=== PATIENT | female | born 1975 | race Two or more races ===

== ENCOUNTER → 2017-01-23 | Outpatient (CLI) | payer OTHER ==
--- NOTE | 2017-01-23 21:31 | RADRPT ---
PROCEDURE: XR Pelvis and Hips. CLINICAL INDICATION: Pelvic pain. Bilateral hip pain. TECHNIQUE: Five views. Frontal pelvis. Frontal and lateral right hip. Frontal and lateral left hip. COMPARISON: No prior studies are available for comparison. FINDINGS: There is no fracture or dislocation. The soft tissues are normal. There are degenerative changes with osteophytes arising from the hips. There is mild joint space suzi rowing of both hip joints. There is no lytic or blastic lesion. There is no radiopaque foreign body. IMPRESSION: 1. Moderate degenerative changes of both hips. 2. No acute abnormality. RPTAT: QQ .Britton Garrido MD, MD Date Time Electronically viewed and signed by .Britton Garrido MD, MD on 01/23/2017 21:31 .R/
--- NOTE | 2017-01-24 06:03 | HKNOTE ---
DATE OF SERVICE: 01/23/2017 CHIEF COMPLAINT: Right hip pain. HISTORY OF PRESENT ILLNESS: This is a 41-year-old morbidly obese female who is complaining of pain in the right hip. She states that she had a fall approximately 6 months ago. The pain is intermitt ent. It radiates to the right knee. She does not use any assist devices. She denies any back pain . She does not take any pain medication. The pain has improved over the last 6 months. She has no other complaints. GAIT: Nonantalgic gait, reciprocal gait pattern. RIGHT KNEE EXAMINATION: 0 to 100 degrees of flexion, 40 degrees of external rotation, 20 degrees of internal rotation, 30 degrees of abduction. Negative Morales's, negative straight leg raise. MOTOR STRENGTH: 5/5 hamstrings, quadriceps, tibialis anterior, gastrocsoleus. X-RAYS RIGHT HIP: Multiple views of the right hip demonstrate minimal degenerative changes with ost eophyte formation. There is minimal joint space narrowing. No fractures or dislocations are seen. IMPRESSION: A 41-year-old obese female with right hip osteoarthritis. PLAN: I discussed treatment options with the patient. I discussed weight loss, use of a cane and p ain medications. She will follow up as needed in the future if she continues to have pain. I expla ined to her that I can perform a right hip corticosteroid injection. Dictated By: FIONA PRO/DARIELA Conf#: [id number] DID#: [id number]
== END | disposition home or self-care (01) ==
LOC: HKI 15:54
PROVIDERS: ATTEND Orthopaedic Surgery Adult Reconstructive Orthopaedic Surgery
DX: M16.11 Unilateral primary osteoarthritis, right hip (principal)
CPT/HCPCS: 73523; Z7500; G0463

== ENCOUNTER → 2017-02-28 | Outpatient (CLI) | payer OTHER ==
[~2017-02-28] VITALS: Ht 167.6 cm; Wt 145.4 kg
[~2017-02-28] MED LIST: ETHYL CHLORIDE 103.5 ML SPRAY TOP ONE; LIDOCAINE 1% (MDV) 20 ML INJ INJ ONE; METHYLPREDNISOLONE ACET 80 MG/ML 1 ML IU ONE
[2017-02-28 11:13] VITALS: Ht 167.6 cm; Wt 145.4 kg
== END | disposition home or self-care (01) ==
LOC: RAD 09:38
PROVIDERS: ATTEND Orthopaedic Surgery Adult Reconstructive Orthopaedic Surgery
DX: M16.12 Unilateral primary osteoarthritis, left hip (principal)
CPT/HCPCS: J1040; Z7610

== ENCOUNTER → 2017-03-06 | Outpatient (CLI) | payer OTHER ==
[~2017-03-06] MED LIST changes: +METHYLPREDNISOLONE ACET 40 MG/ML 1 ML IU ONE
--- NOTE | 2017-03-07 10:30 | OPR ---
DATE OF OPERATION: 03/06/2017 SURGEON: Larry Caba MD PREOPERATIVE DIAGNOSIS: Right hip osteoarthritis. POSTOPERATIVE DIAGNOSIS: Right hip osteoarthritis. PROCEDURES PERFORMED: 1. Right hip corticosteroid injection, CPT code 17890, modifier 22. 2. Use of fluoroscopy for injection, CPT code 62812, modifier 22.. COMPLICATIONS: None. SPECIMENS: None. SURGICAL TECHNIQUE: The patient was met in the fluoroscopy suite and the correct operative site was confirmed and marked. After the correct operative site was confirmed and marked, the right hip was then prepped and draped in the usual sterile fashion. Before starting, a timeout was taken to iden tify the correct operative site. At this point, an injection consisting of 2 mL of Kenalog, along w ith 3 mL of 4 mL of 1% lidocaine was injected under fluoroscopic guidance to the right hip. Images were taken and saved. There were no complications. There was no bleeding. The patient tolerated t he procedure well. She was instructed to ice the right groin. She will follow up with the [facility] within 2 weeks. She was given prescription for pain control. This requires modifier 22 due to the patient's obesity. Dictated By: LARRY CABA MD SS/DARIELA Conf#: [id number] DID#: [id number]
--- NOTE | 2017-03-07 11:28 | RADRPT ---
PROCEDURE: X-ray fluoroscopy guidance CLINICAL INDICATION: Pain TECHNIQUE: Fluoroscopic guidance was provided for right hip cortisone injection under fluoroscopy. Fluoro time: 0.1 minutes Number of images/sequences: 2 COMPARISON: None available FINDINGS: Injection needle is seen directed at the right hip joint. IMPRESSION: 1. X-ray fluoroscopic guidance, as above. RPTAT: QQ .Cleve Grissom MD, MD Date Time Electronically viewed and signed by .Cleve Grissom MD, on 03/07/2017 11:27 .R/
== END | disposition home or self-care (01) ==
LOC: RAD 10:39
PROVIDERS: ATTEND Orthopaedic Surgery Adult Reconstructive Orthopaedic Surgery
DX: M17.11 Unilateral primary osteoarthritis, right knee (principal)
CPT/HCPCS: 77002; J1030; Z7610; J1040